=== PATIENT | female | born 1975 | race Caucasian/White ===

== ENCOUNTER → 2019-12-02 14:08 | Outpatient (CLI) | payer OTHER, SELFPAY ==
--- NOTE | 2019-12-02 | DI.CT.S_ITS ---
PROCEDURE: CT HEAD/BRAIN WO CON INDICATIONS: DIZZINESS /headaches TECHNIQUE: Noncontrast 4.5 mm thick angled axial sections acquired from the foramen magnum to the vertex, with coronal and sagittal reformats. For radiation dose reduction, the following was used: automated exposure control, adjustment of mA and/or kV according to patient size. COMPARISON: None. FINDINGS: Image quality: Excellent. CSF spaces: Basal cisterns are patent. No extra-axial fluid collections. The ventricles are symmetric in size and shape. Brain: No intracranial bleeds or masses. There is mild cerebral volume loss for age, with resultant ventricular and sulcal prominence. There are mild periventricular and deep white matter chronic small vessel ischemic changes. Skull and face: Calvarium and visualized facial bones appear intact, without suspicious lesions. Sinuses: Visualized sinuses and mastoids are clear. IMPRESSION: 1. No acute intracranial disease process. 2. No abnormal intracranial mass or mass effect. 3. No intracranial hemorrhage. Dictated by: Falguni Mai MD, PhD on 12/02/2019 at 16:11 Approved by: Falguni Mai MD, PhD on 12/02/2019 at 16:13
== END ==
PROVIDERS: PCP Family Medicine; Referring Provider Family Medicine; Visit Provider Family Medicine
DX: R42 Dizziness and giddiness (principal); R51.9 Headache, unspecified
CPT/HCPCS: 70450

== ENCOUNTER 2022-01-14 20:46 | Emergency (ER) | payer OTHER, SELFPAY ==
[2022-01-14 21:26] VITALS: BP 133/68; PULSE 89; RESP 17; TEMP 38.6; O2SAT 99
[2022-01-14 21:41] LABS: Add Manual Diff / Slide Review NO; Basophils Absolute Auto 100 /uL (0-100); Basophils Percent Auto 0.5 % (0-2); Eosinophils Absolute Auto 0 /uL (0-450); Eosinophils Percent Auto 0.1 % (2-4); Hematocrit 39.1 % (36-46); Hemoglobin 13.3 g/dL (12.0-16.0); Lymphocytes Absolute Auto 1000 /uL (1100-4500); Lymphocytes Percent Auto 8.8 % (25-40); Mean Corpuscular HGB Conc 33.9 % (30-36); Mean Corpuscular Hemoglobin 30.3 PG (26-34); Mean Corpuscular Volume 89.4 fL (80-100); Monocytes Absolute Auto 600 /uL (0-900); Monocytes Percent Auto 4.7 % (3-14); Neutrophils Absolute Auto 10000 /uL (1500-7000); Neutrophils Percent Auto 85.9 % (50-75); Platelet Count 207 X10^3/uL (150-400); Red Blood Cell Count 4.38 X10^6/uL (4.0-5.2); Red Cell Distribution Width 12.9 % (11.6-14.8); White Blood Cell Count 11.6 X10^3/uL (4.5-11.0)
[2022-01-14 21:58] LABS: Alanine Aminotransferase 21 IU/L (<35); Albumin 4.2 g/dL (3.5-5.0); Albumin Globulin Ratio 1.4 (1.0-2.8); Alkaline Phosphatase 51 U/L (38-126); Aspartate Aminotransferase 24 IU/L (14-36); BUN Creatinine Ratio 21.6 (6-22); Bilirubin Total 1.4 mg/dL (0.2-1.3); Blood Urea Nitrogen 16 mg/dL (7-17); Calcium 8.6 mg/dL (8.4-10.2); Carbon Dioxide 28 mmol/L (22-32); Chloride 101 mmol/L (98-107); Estimated Glomerular Filt Rate > 60 mL/min (>60); Globulin 3.1 g/dL (1.7-4.1); Glucose 116 mg/dL (70-100); HEMOLYSIS < 15 (0-50); Lipase 46 U/L (23-300); Potassium 3.6 mmol/L (3.4-5.1); Sodium 136 mmol/L (137-145); Total Protein 7.3 g/dL (6.3-8.2)
[2022-01-14 22:18] LABS: Influenza A - CEPHEID Flu A POSITIVE (NEGATIVE); Influenza B - CEPHEID Flu B NEGATIVE (NEGATIVE); Respiratory Syncytial Virus Negative (Negative)
[2022-01-14 22:28] LABS: COVID-19 CEPHEID 4-PLEX PCR Negative (Negative)
--- NOTE | 2022-01-14 23:49 | DI.US.S_ITS ---
PROCEDURE: US PELVIC COMPLETE INDICATIONS: RIGHT LOWER QUADRANT PAIN TECHNIQUE: Real-time scanning was performed of the pelvic organs, with image documentation. Additional endovaginal scanning was necessary due to incomplete visualization of the adnexal and endometrial structures by transabdominal scanning. COMPARISON: [facility], US, US PELVIC COMPLETE, 06/16/2018, 17:43. FINDINGS: Uterus: Uterus is anteverted and measures 7.6 x 5.4 x 4.2 cm. The endometrium measures up to 0.5 cm. No uterine mass lesions identified. Ovaries: The right ovary measures 4.7 x 2.2 x 1.7 cm cm, with a calculated ovarian volume of 8.8 cc. The left ovary measures 5.2 x 2.5 x 3.1 cm, with a calculated ovarian volume of 21 cc. The ovaries have a normal sonographic appearance. There are multiple small peripherally distributed follicles within the ovaries, with greater than 12 demonstrated on each side. No adnexal masses. There is patent arterial and venous flow demonstrated within the ovaries bilaterally. Other: There is a small amount of free fluid in the pelvis which appears within physiologic limits. IMPRESSION: 1. Prominent size of the ovaries with multiple small peripherally distributed ovarian follicles suggestive of polycystic ovarian syndrome in the appropriate clinical context. Recommend correlation clinically. 2. No definite evidence of ovarian torsion at the time of the study. We strive to produce accurate, complete, and clear reports of imaging services. To assist us in improving patient care, this report was composed using standard report templates and voice recognition software. Therefore, it may contain abnormal punctuation, insertions and/or omissions. Occasional wrong-word or sound-alike substitutions may occur. Though we review the report and make efforts to correct it, we do recommend that the report be read carefully in proper context to recognize any text inaccuracies. Dictated by: Richard Aldrich M.D. on 01/15/2022 at 2:18 Approved by: Richard Aldrich M.D. on 01/15/2022 at 2:22
--- NOTE | 2022-01-15 | DI.US.S_ITS ---
PROCEDURE: US ABDOMEN LIMITED INDICATIONS: RIGHT LOWER QUADRANT PAIN. ?APPENDICITIS TECHNIQUE: Real-time focused scanning was performed of the abdomen, with image documentation. COMPARISON: [facility], CT, CT ABDOMEN PELVIS W CON, 01/15/2022, 1:57. FINDINGS: A tubular structure is demonstrated on the images obtained. However, this does not appear blind ending and is suggestive of a small bowel loop. The appendix is not definitively visualized sonographically on the current study. No free fluid identified in the right lower quadrant. A mildly dilated extrarenal pelvis is noted in the right kidney. IMPRESSION: 1. Appendix not discretely visualized sonographically. Recommend correlation with subsequent CT. Dictated by: Richard Aldrich M.D. on 01/15/2022 at 2:36 Approved by: Richard Aldrich M.D. on 01/15/2022 at 2:41
--- NOTE | 2022-01-15 00:36 | ED.ABDPAIN ---
HPI - Abdominal Pain General Chief Complaint: Abdominal Pain Stated Complaint: Fever, Stomach pain Time Seen by Provider: 01/14/22 21:35 Source: patient Mode of arrival: Ambulatory History of Present Illness HPI narrative: 46-year-old female presents with in the chief complaint of fever and right lower quadrant pain. Last week she had classic upper respiratory complaints including nasal congestion, runny nose, sore throat and cough. At some point, she thinks maybe during a significant coughing spell she noticed she was having right lower quadrant pain that has been present for the past 5 days or so. It seems to be worse when she moves and perhaps improves with rest. She denies change in appetite, nausea or vomiting. She denies dysuria, frequency or urgency. She denies constipation or diarrhea. Related Data Home Medications Medication Instructions Recorded Confirmed loratadine 5 mg-pseudoephedrine ER 1 tab PO QD-BID 06/16/18 01/14/22 120 mg tablet,extended release,12hr (Claritin-D 12 Hour) Allergies Allergy/AdvReac Type Severity Reaction Status Date / Time No Known Drug Allergies Allergy Unknown Verified 01/14/22 21:28 [NO KNOWN DRUG ALLERGIES] Review of Systems Review of Systems Narrative: GENERAL: See HPI HEENT: Denies sinus pain, ear pain, sore throat, difficulty swallowing, dizziness. RESPIRATORY: See HPI CARDIOVASCULAR: Denies chest pain, palpitations, orthopnea, edema, GASTROINTESTINAL: See HPI. : Denies dysuria, frequency, incontinence, hematuria, urinary retention. MUSCULOSKELETAL: denies weakness, joint pain, or bony pain SKIN: Denies rash, skin lesions, or other NEUROLOGIC: Denies weakness, headache, numbness, change in speech, confusion, seizures, incoordination. PSYCHIATRIC: No concerning psychosocial issues. 12 point review of systems is negative except for those stated above Patient History Surgical History History of third molar tooth extraction Social History Smoking Status: Never smoker Smoking Status: Never smoker alcohol intake frequency: other Substance Use Type: does not use Exam Narrative Exam Narrative: GENERAL: [46] year old patient appears stated age. Well-developed patient, in mild distress. HEAD: Atraumatic. Normocephalic. EYES: Pupils equal round and reactive. Extraocular motions intact. No scleral icterus. No injection or drainage. ENT: Nose without bleeding, purulent drainage. Throat without erythema, tonsillar hypertrophy or exudate. Airway patent. NECK: Trachea midline. Non tender CARDIOVASCULAR: Regular rate and rhythm without murmurs, gallops, or rubs. RESPIRATORY: Clear to auscultation. Breath sounds equal bilaterally. No wheezes, rales, or rhonchi. GASTROINTESTINAL: Abdomen soft, tender in the right lower quadrant, nondistended. Negative heel tap, obturator or psoas EXTREMITIES: No edema or joint tenderness. BACK: Nontender without deformity or crepitance. No flank tenderness. NEURO: AOx3. SKIN: No rash or erythema of visible areas Initial Vital Signs Initial Vital Signs: Vital Signs Temperature 101.5 F H 01/14/22 21:26 Pulse Rate 89 01/14/22 21:26 Respiratory Rate 17 01/14/22 21:26 Blood Pressure 133/68 01/14/22 21:26 Pulse Oximetry 99 01/14/22 21:26 Oxygen Delivery Method 01/14/22 21:26 Course Orders Ordered: ED Orders 01/14/22 21:24 Covid-19 + FLU A/B + RSV - PCR Stat 01/14/22 21:34 Complete Blood Count AUTO DIFF Stat Comprehensive Metabolic Panel Stat Lipase Stat 01/14/22 23:49 US pelvic complete Stat 01/15/22 US abdomen limited Stat 01/15/22 01:48 CT abdomen pelvis w con Stat Vital Signs Vital signs: Vital Signs - 8 hr 01/14/22 21:26 Temperature 101.5 F H Pulse Rate 89 Respiratory Rate 17 Blood Pressure 133/68 Pulse Oximetry 99 Oxygen Delivery Method Room Air MDM - Abdominal Pain Lab Data Result diagrams: 01/14/22 21:34 01/14/22 21:34 Labs: Lab Results 01/14/22 01/14/22 01/14/22 Range/Units 21:24 21:34 21:34 WBC 11.6 H (4.5-11.0) X10^3/uL RBC 4.38 (4.0-5.2) X10^6/uL Hgb 13.3 (12.0-16.0) g/dL Hct 39.1 (36-46) % MCV 89.4 (80-100) fL MCH 30.3 (26-34) PG MCHC 33.9 (30-36) % RDW 12.9 (11.6-14.8) % Plt Count 207 (150-400) X10^3/uL Neut % (Auto) 85.9 H (50-75) % Lymph % (Auto) 8.8 L (25-40) % [place] % (Auto) 4.7 (3-14) % Eos % (Auto) 0.1 L (2-4) % Baso % (Auto) 0.5 (0-2) % Neut # (Auto) 68234 H (9449-4064) /uL Lymph # (Auto) 1000 L (5581-8250) /uL [place] # (Auto) 600 (0-900) /uL Eos # (Auto) 0 (0-450) /uL Baso # (Auto) 100 (0-100) /uL Sodium 136 L (137-145) mmol/L Potassium 3.6 (3.4-5.1) mmol/L Chloride 101 (98-107) mmol/L Carbon Dioxide 28 (22-32) mmol/L BUN 16 (7-17) mg/dL Creatinine 0.74 (0.52-1.04) mg/dL Estimated GFR > 60 (>60) mL/min BUN/Creatinine Ratio 21.6 (6-22) Glucose 116 H (70-100) mg/dL Calcium 8.6 (8.4-10.2) mg/dL Total Bilirubin 1.4 H (0.2-1.3) mg/dL AST 24 (14-36) IU/L ALT 21 (<35) IU/L Alkaline Phosphatase 51 (38-126) U/L Total Protein 7.3 (6.3-8.2) g/dL Albumin 4.2 (3.5-5.0) g/dL Globulin 3.1 (1.7-4.1) g/dL Albumin/Globulin Ratio 1.4 (1.0-2.8) Lipase 46 (23-300) U/L SARS-CoV-2 (PCR) Negative (Negative) Influenza A (RT-PCR) Flu a positive H (NEGATIVE) Influenza B (RT-PCR) Flu b negative (NEGATIVE) RSV (PCR) Negative (Negative) Point of care testing: Point of Care Testing Test Results Negative Urine Dip Bedside Urine Glucose Negative Bedside Urine Bilirubin - Negative Bedside Urine Ketone - Negative Urine Specific [place] 1.010 Bedside Urine Occult Blood - Negative Bedside Urine pH 6.0 Bedside Urine Protein - Negative Bedside Urine Urobilinogen - Negative Bedside Urine Nitrite - Negative Bedside Urine Leukocytes - Negative Esterase Imaging Data US - abdomen: Radiologist's Impression: [address] [address] Ultrasound Report Signed Patient: Rachel Reyes MR#: [id number] : 1975 Acct:[id number] Age/Sex: 46 / F Date of Service: 01/15/22 Loc: ED Accession Number: [id number] ?? Procedure: US abdomen limited Ordering Provider: Issa Andrea D.O. PROCEDURE: US ABDOMEN LIMITED ? INDICATIONS:? RIGHT LOWER QUADRANT PAIN. ?APPENDICITIS ? TECHNIQUE:? Real-time focused scanning was performed of the abdomen, with image documentation.? ? COMPARISON:? [facility], CT, CT ABDOMEN PELVIS W CON, 01/15/2022, 1:57. ? FINDINGS:? ? A tubular structure is demonstrated on the images obtained.? However, this does not appear blind ending and is suggestive of a small bowel loop.? The appendix is not definitively visualized sonographically on the current study. ? No free fluid identified in the right lower quadrant. ? A mildly dilated extrarenal pelvis is noted in the right kidney. ? IMPRESSION:? ? 1. Appendix not discretely visualized sonographically. ? Recommend correlation with subsequent CT.? ? Dictated by: Richard Aldrich M.D. on 01/15/2022 at 2:36 ? ? Approved by: Richard Aldrich M.D. on 01/15/2022 at 2:41 ? CT scan - abdomen/pelvis: Radiologist's Impression: [address] [address] Ultrasound Report Signed Patient: Rachel Reyes MR#: [id number] : 1975 Acct:[id number] Age/Sex: 46 / F Date of Service: 01/15/22 Loc: ED Accession Number: [id number] ?? Procedure: US abdomen limited Ordering Provider: Issa Andrea D.O. PROCEDURE: US ABDOMEN LIMITED ? INDICATIONS:? RIGHT LOWER QUADRANT PAIN. ?APPENDICITIS ? TECHNIQUE:? Real-time focused scanning was performed of the abdomen, with image documentation.? ? COMPARISON:? [facility], CT, CT ABDOMEN PELVIS W CON, 01/15/2022, 1:57. ? FINDINGS:? ? A tubular structure is demonstrated on the images obtained.? However, this does not appear blind ending and is suggestive of a small bowel loop.? The appendix is not definitively visualized sonographically on the current study. ? No free fluid identified in the right lower quadrant. ? A mildly dilated extrarenal pelvis is noted in the right kidney. ? IMPRESSION:? ? 1. Appendix not discretely visualized sonographically. ? Recommend correlation with subsequent CT.? ? Dictated by: Richard Aldrich M.D. on 01/15/2022 at 2:36 ? ? Approved by: Richard Aldrich M.D. on 01/15/2022 at 2:41 ? Discharge Plan Departure Patient Disposition: Home Clinical Impression: Flu, Acute right lower quadrant pain Instructions: DI for Abdominal Pain-Adult, DI for Influenza -- Adult Activity Restrictions/Additional Instructions: *You have been diagnosed with [abdominal pain, influenza a] * As we discussed your history and physical exam as well as labs and imaging are very reassuring. There is no evidence of any severe diagnoses that would require a specific or immediate intervention. CT and ultrasound demonstrates no evidence of ovarian problem, appendicitis, kidney stone or other *What to do: *Please continue to take your regular medications as directed. [x ] New medication prescriptions sent to your pharmacy: [ ] *Please follow up with your primary care provider in 2-3 days, call for an appointment. Let them know you were seen in the Emergency Department and that we ask that you be seen in follow up. We will electronically transmit a record of today's note if your PCP is in our system *Please consider a clear liquid diet for the next 24-48 hours and then slowly advance to regular as tolerated. Also, try to avoid alcohol, nicotine, caffeine, spicy, acidic or fatty foods as this may worsen your symptoms *If you do not have a primary care provider please contact the [facility] Resource line at [phone]. They will ask some questions about your medical history and help get you set up with a doctor in the community. *Return to Emergency Department if you should have any new, worsening or concerning symptoms, such as [fever greater than 101 F, shaking chills, worsening pain, persistent vomiting or other bothersome symptoms] Prescriptions: No Action Claritin-D 12 Hour 5-120 mg tablet extended release 12 hr 1 tab PO QD-BID Referrals: Gee Artis MD [Primary Care Provider] -
--- NOTE | 2022-01-15 01:48 | DI.CT.S_ITS ---
PROCEDURE: CT ABDOMEN PELVIS W CON INDICATIONS: RLQ pain, fever, elevated WBCs TECHNIQUE: After the administration of IV contrast, axial sections were acquired from the lung bases to the pubic symphysis. Coronal and sagittal reformats were performed. For radiation dose reduction, the following was used: automated exposure control, adjustment of mA and/or kV according to patient size. COMPARISON: [facility], , ABDOMEN LIMITED, 01/15/2022, 0:32. [facility], , US PELVIC COMPLETE, 01/15/2022, 0:49. FINDINGS: Image quality: Excellent. Lung bases: There is a small region of confluent consolidation within the visualized right middle lobe as well as clustered indistinct nodules within the right lower lobe. The findings are consistent with pneumonia.. Heart: Heart is normal in size. ABDOMEN: Liver: Anteriorly within the right hepatic lobe, there is a hypoattenuating lesion measuring up to 1.5 cm with a peripheral focus of hypervascular enhancement. The findings are nonspecific but suggestive of a hemangioma. Gallbladder: Within normal limits without calcified gallstones. Biliary ducts: No biliary ductal dilatation. Pancreas: Unremarkable. Spleen: Normal in size. Adrenal Glands: No adrenal nodules. Kidneys and Ureters: No hydronephrosis. Stomach and Bowel: Stomach, small bowel loops, and colon are normal in caliber and wall thickness. The appendix is normal in appearance. Peritoneum: No abnormal intraperitoneal fluid. No free air. Ventral Wall: No hernia. Abdominal Nodes: No retroperitoneal or mesenteric adenopathy by size criteria. Vessels: Aorta and inferior vena cava are normal in size. PELVIS: Pelvic Organs: Unremarkable. Bladder: Unremarkable. Pelvic Nodes: No enlarged lymph nodes. Miscellaneous: No inguinal hernias are seen. Bones: Visualized osseous structures demonstrate no suspicious focal lesions. IMPRESSION: 1. Right middle and lower lobe consolidation consistent with pneumonia. 2. No evidence of acute appendicitis. 3. Hypoattenuating lesion with eccentric hypervascular enhancement in the right hepatic lobe. The findings are nonspecific but suggestive of a hemangioma. Consider follow-up nonemergent liver protocol MRI or CT for further evaluation. Dictated by: Richard Aldrich M.D. on 01/15/2022 at 2:50 Approved by: Richard Aldrich M.D. on 01/15/2022 at 2:54
[2022-01-15 03:21] VITALS: BP 114/66; PULSE 64; RESP 14; TEMP 36.5; O2SAT 99
== END 2022-01-15 03:15 | disposition home or self-care (01) ==
PROVIDERS: Emergency Provider Emergency Medicine; PCP Family Medicine
DX: J10.1 Influenza due to other identified influenza virus with other respiratory manifestations (principal); R10.31 Right lower quadrant pain; Z20.822 Contact with and (suspected) exposure to COVID-19
CPT/HCPCS: 0241U; 36415; 74177; 76705; 76830; 76856; 80053; 81003; 81025; 83690; 85025; 93975; 99283; 99284; Q9967

== ENCOUNTER → 2022-07-09 14:15 | Outpatient (CLI) | payer OTHER, SELFPAY ==
--- NOTE | 2022-07-09 14:16 | DI.US.S_ITS ---
PROCEDURE: US PELVIC COMPLETE INDICATIONS: EXCESSIVE AND FREQUENT MENSTRUATION TECHNIQUE: Real-time scanning was performed of the pelvic organs, with image documentation. Additional endovaginal scanning was necessary due to incomplete visualization of the adnexal and endometrial structures by transabdominal scanning. COMPARISON: [facility], US, US PELVIC COMPLETE, 01/15/2022, 0:49. [facility], CT, CT ABDOMEN PELVIS W CON, 01/15/2022, 1:57. [facility], US, US PELVIC COMPLETE, 06/16/2018, 17:43. FINDINGS: Uterus: Uterus is anteverted and normal in size at 10 x 6 x 4.5 cm. The myometrium is homogeneous. The endometrium measures 11 mm combined thickness. The endometrial stripe is mildly heterogeneous. There is an apparent nabothian cystic cluster seen that measures up to 11 mm. Multiple punctate calcifications can be seen throughout the cervix. Ovaries: The right ovary measures 5 x 2.7 x 2.2 cm, with a calculated ovarian volume of 14.9 cc. Approximately 30 can be seen involving each ovary. The left ovary measures 4.7 x 3.1 x 1.9 cm, with a calculated ovarian volume of 14.4 cc. Less than 12 follicles can be seen involving the left ovary. Within the left ovary, there is a thick-walled collapsing cyst with peripheral vascularity that measures 2.3 x 1.6 x 1.3 cm. No adnexal masses are seen. Other: No pathologic free abdominal or pelvic fluid. IMPRESSION: More than 12 follicles can be seen involving the right ovary, which is consistent with polycystic ovarian syndrome. Within the left ovary, there is a complex cyst, likely representing a hemorrhagic cyst. If it would be clinically appropriate, a followup pelvic ultrasound could be considered in 6 weeks to assure resolution/ improvement. We strive to produce accurate, complete, and clear reports of imaging services. To assist us in improving patient care, this report was composed using standard report templates and voice recognition software. Therefore, it may contain abnormal punctuation, insertions and/or omissions. Occasional wrong-word or sound-alike substitutions may occur. Though we review the report and make efforts to correct it, we do recommend that the report be read carefully in proper context to recognize any text inaccuracies. Dictated by: Tee Clemens M.D. on 07/09/2022 at 15:48 Approved by: Tee Clemens M.D. on 07/09/2022 at 15:50
== END ==
PROVIDERS: PCP Family Medicine; Referring Provider Family Medicine; Visit Provider Family Medicine
DX: N92.1 Excessive and frequent menstruation with irregular cycle (principal); K21.9 Gastro-esophageal reflux disease without esophagitis; R10.9 Unspecified abdominal pain
CPT/HCPCS: 76830; 76856

== ENCOUNTER → 2022-07-16 15:41 | Outpatient (CLI) | payer OTHER, SELFPAY ==
--- NOTE | 2022-07-16 | DI.US.S_ITS ---
PROCEDURE: US ABDOMEN COMPLETE INDICATIONS: REFLUX, PAIN TECHNIQUE: Real-time scanning was performed of the abdominal and retroperitoneal organs, with image documentation. COMPARISON: [facility], , US ABDOMEN LIMITED, 01/15/2022, 0:32. FINDINGS: Liver: Liver is normal in size and homogeneous in echotexture. Gallbladder: Unremarkable. Biliary ducts: Intrahepatic bile ducts are non-dilated. Extrahepatic bile duct caliber measures 4 mm. Normal is 6-7 mm or less in diameter, or 10 mm or less post-cholecystectomy. Pancreas: Visualized portions of the pancreas are sonographically normal. Spleen: Spleen is normal in size and homogeneous in echotexture. Kidneys: Kidneys are normal in size and echotexture. Right kidney measures 10.2 cm long; left kidney measures 11.4 cm long. No hydronephrosis or nephrolithiasis. No solid masses. Aorta: Visualized aorta is normal in caliber at less than 3 cm. Iliacs: Proximal common iliac arteries are normal in caliber at less than 2.5 cm. IVC: Intrahepatic inferior vena cava is patent. Miscellaneous: No free abdominal fluid. IMPRESSION: Unremarkable abdominal ultrasound. Dictated by: Jitendra Cerda M.D. on 07/16/2022 at 16:43 Approved by: Jitendra Cerda M.D. on 07/16/2022 at 16:44
== END ==
PROVIDERS: PCP Family Medicine; Referring Provider Family Medicine; Visit Provider Family Medicine
DX: K21.9 Gastro-esophageal reflux disease without esophagitis (principal); R10.9 Unspecified abdominal pain
CPT/HCPCS: 76700